=== PATIENT | male | born 1975 ===

== ENCOUNTER 2017-10-04 17:47 | Emergency (ER) | payer SELFPAY ==
[2017-10-04 18:07] VITALS: BP 126/86; PULSE 96; RESP 18; TEMP 98.2; O2SAT 98
--- NOTE | 2017-10-04 18:43 | ED PDOC ---
HPI: General Adult Chief Complaint (Provider): RASH History Per: Patient (41 Y/O MALE HERE FOR EVALUATION OF RASH X 4 DAYS. PATIENT STATES HE IS VISITING FROM [place] AND WAS IN [place] LAST WEEK HUNTING/ FISHING. NOTES RASH STARTED 3 DAYS AGO ON LOWER EXTRMITIES. ARRIVED IN [place] TODAY. TOOK ANTIHISTAMINE WITHOUT IMPROVEMENT.) <Ben Huertas - Last Filed: 10/04/17 18:47> <Ginger Forbes - Last Filed: 10/04/17 20:39> Time Seen by Provider: 10/04/17 18:40 Chief Complaint (Nursing): Abnormal Skin Integrity Supervising Attending Note <Ben Huertas - Last Filed: 10/04/17 18:47> - Supervising Attending Note The Documented history was done by the: Physician Finishing Supervisor The documented physical exam was done by the: Physician Finishing Supervisor, Attending Physician - Attestation: I have personally seen and examined this patient.: Yes <Ginger Forbes - Last Filed: 10/04/17 20:39> - Notes: Notes:: Multiple erythematous papules with central lesions consistent with insect bites. (Ginger Forbes) Past Medical History Reviewed: Historical Data, Nursing Documentation, Vital Signs - Family History Family History: States: No Known Family Hx <Ben Huertas - Last Filed: 10/04/17 18:47> <Ginger Forbes - Last Filed: 10/04/17 20:39> Vital Signs: Last Vital Signs Temp 98.2 F 10/04/17 18:03 Pulse 96 H 10/04/17 18:03 Resp 18 10/04/17 18:03 BP 126/86 10/04/17 18:03 Pulse Ox 98 10/04/17 18:47 - Home Medications Home Medications: Ambulatory Orders Medication Instructions Recorded Hydrocortisone 1% Oint [Cortizone 0.5 gm TP BID #1 tube 10/04/17 1% Oint] hydrOXYzine Pamoate [Vistaril] 50 mg PO Q6 PRN #24 cap 10/04/17 - Allergies Allergies/Adverse Reactions: Allergies Allergy/AdvReac Type Severity Reaction Status Date / Time No Known Allergies Allergy Verified 10/04/17 18:03 Review of Systems ROS Statement: Except As Marked, All Systems Reviewed And Found Negative <Ben Huertas - Last Filed: 10/04/17 18:47> Physical Exam - Reviewed Nursing Documentation Reviewed: Yes Vital Signs Reviewed: Yes - Physical Exam Appears: Positive for: Well, Non-toxic, No Acute Distress Head Exam: Positive for: ATRAUMATIC, NORMAL INSPECTION, NORMOCEPHALIC Skin: Positive for: Normal Color, Warm, Rash (MULTIPLE REGIONS OF LESIONS NOTED LOWER EXTREMITIES BILATERAL LEGS WITH MILD SURROUNDING ERYTHEMA. HAS UMBILICATED LESIONS CENTRALLY) Eye Exam: Positive for: EOMI, Normal appearance, PERRL ENT: Positive for: Normal ENT Inspection Neck: Positive for: Normal, Painless ROM Cardiovascular/Chest: Positive for: Regular Rate, Rhythm Respiratory: Positive for: CNT, Normal Breath Sounds Gastrointestinal/Abdominal: Positive for: Normal Exam, Soft Back: Positive for: Normal Inspection Extremity: Positive for: Normal ROM Neurologic/Psych: Positive for: Alert, Oriented <Ben Huertas - Last Filed: 10/04/17 18:47> - ECG O2 Sat by Pulse Oximetry: 98 <Ben Huertas - Last Filed: 10/04/17 18:47> <Ginger Forbes - Last Filed: 10/04/17 20:39> - Progress ED Course And Treament: PATIENT WAS SEEN BY DR. FORBES WELL. (Ben Huertas) Disposition - Patient ED Disposition Is Patient to be Admitted: No - Disposition Disposition: Routine/Home Disposition Time: 18:45 <Ben Huertas - Last Filed: 10/04/17 18:47> <Ginger Forbes - Last Filed: 10/04/17 20:39> - Clinical Impression Clinical Impression: Insect bite - Disposition Referrals: [facility] [Outside] Condition: GOOD Prescriptions: Hydrocortisone 1% Oint [Cortizone 1% Oint] 0.5 gm TP BID #1 tube hydrOXYzine Pamoate [Vistaril] 50 mg PO Q6 PRN #24 cap PRN Reason: Itching / Pruritus Instructions: Insect Bites and Stings (DC) Forms: [employer] (Green[place]ic)
== END 2017-10-04 19:05 | disposition home or self-care (01) ==
LOC: H.ER 17:47
DX: S80.861A Insect bite (nonvenomous), right lower leg, initial encounter (principal); W57.XXXA Bitten or stung by nonvenomous insect and other nonvenomous arthropods, initial encounter; Y92.89 Other specified places as the place of occurrence of the external cause